=== PATIENT | female | born 1940 | race Caucasian/White ===

== ENCOUNTER 2017-07-10 16:28 | Emergency (ER) | payer MEDICARE ==
[~2017-07-10] VITALS: Ht 167.6 cm; Wt 48.1 kg
[~2017-07-10 16:28] MED LIST: ARMOUR THYROID60 MG PO; ASPIRIN 325MG; CALCIUM PO; CALCIUM500 M3; CELEBREX200 MG PO; CO Q-10100 MG PO; CRESTOR5 MG PO; EFFIENT; GINGER PO; HYDROCHLOROTH12.5 MG PO; MAGNESIUM PO; METOPROLOL PO; METOPROLOL SUCC25 MG PO; METOPROLOL SUCC50 MG PO; RAMIPRIL PO; RAMIPRIL5 MG PO; RANITIDINE HCL300 MG PO; VITAMIN D35000 UNI1 PO; Z ACIDOPHILUS PO; Z ARMOUR THYROID PO; Z CO Q PO; Z MELATONIN; Z.0.B12 5,000 MCG1 E SL; Z.0.CRESTOR5 MG PO; Z.0.MULTIVITAMINS1 E; Z.0.ZANTAC 7575 MG PO; [UNRECOGNIZED DRUG - OTHER]; [UNRECOGNIZED DRUG - OTHER] PO; [UNRECOGNIZED DRUG - OTHER] PO; [UNRECOGNIZED DRUG - OTHER] PO
--- NOTE | 2017-07-10 18:22 | Diagnostic Imaging Report ---
Exam: Head CT without contrast History: Rule out CVA, falls, right leg weakness. Comparison studies: None Technique: Axial images were obtained from the skull base to the vertex. Coronal and sagittal images reconstructed from the axial data. Intravenous contrast: None Findings: Scalp: No abnormalities. Bones: No fractures, blastic or lytic lesions. Brain sulci: Sulci at the vertex are mildly effaced. Moderately prominent sylvian fissures. Remaining sulci are mildly prominent. Ventricles: Moderate ventriculomegaly disproportionate to sulcal prominence is unchanged. Findings may reflect chronic communicating hydrocephalus or normal pressure hydrocephalus in the appropriate context. No acute hydrocephalus. Extra-axial spaces: No masses, no fluid collection. Parenchyma: Confluent hypodensities in the supratentorial white matter are nonspecific most compatible with chronic small vessel ischemic changes. Sellar/suprasellar region: No abnormalities. Craniocervical junction: Patent foramen magnum. No Chiari one malformation. Incidental findings: Atherosclerotic calcifications in the carotid siphons. IMPRESSION: 1. No mass, acute hemorrhage or acute cortical vascular insults. 2. No changes from the previous brain MRI of 03/23/2017 when allowing for differences in technique. Chronic findings: 1. Mild generalized volume loss. 2. Severe supratentorial microvascular ischemic changes. 3. Moderate ventriculomegaly. Consider normal pressure hydrocephalus in the appropriate setting. Signed by: Dr. Randolph Shea M.D. on 07/10/2017 6:18 PM
[2017-07-10 19:52] LABS: BILIRUBIN,URINE NEGATIVE (NEGATIVE); CLARITY,URINE CLEAR (CLEAR); COLOR,URINE YELLOW (YELLOW); KETONES,URINE 1+ (NEGATIVE); LEUKOCYTE ESTERASE ,URINE NEGATIVE (NEGATIVE); NITRITE,URINE NEGATIVE (NEGATIVE); PROTEIN,URINE DIPSTICK NEGATIVE (NEGATIVE); URINE UROBILINOGEN 0.2 mg/dL (0.2 - 1)
[2017-07-10 20:06] LABS: WBC,URINE (MAN) 0-5 /HPF (0-5)
== END 2017-07-10 21:00 | disposition left against medical advice (07) ==
LOC: ER 16:28
DX: R26.9 Unspecified abnormalities of gait and mobility (principal)
CPT/HCPCS: 70450; 81001; 87086

== ENCOUNTER → 2019-10-15 | Outpatient (CLI) | payer MEDICARE, OTHER ==
--- NOTE | 2019-10-15 12:44 | Diagnostic Imaging Report ---
CT BRAIN WO HISTORY: Trauma; frequent falls COMPARISON: Head CT 07/10/2017; report from brain MRI dated 03/23/2017 Technique: Noncontrast axial scans were obtained from skull base to the vertex. Coronal and sagittal reconstructions obtained from the axial data. One or more of the following dose reduction techniques were used: Automated exposure control, adjustment of the mA and/or kV according to patient size, and/or utilization of iterative reconstruction technique. DISCUSSION: Scalp/Skull: Unremarkable. Brain sulci: Mildly prominent. Ventricles: Stable moderate supratentorial ventriculomegaly is slightly out of proportion to sulcal prominence. Extra-axial spaces: No masses or fluid collections. Carotid siphon calcifications are present. Parenchyma: Severe bilateral deep white matter hypodensity is likely chronic microvascular ischemic change. There is an old left striatocapsular lacunar infarct, which was not present on prior head CT.. Otherwise, no masses, hemorrhage, or large vascular territory acute infarct. Dural sinuses: No abnormal densities. Sellar/Suprasellar region: Intact. Skull base: Intact. Incidental findings: None. IMPRESSION: 1. Unchanged moderate ventriculomegaly, which is slightly are proportional sulcal prominence. Correlate for communicating hydrocephalus (i.e. normal pressure hydrocephalus). 2. Otherwise, no acute intracranial abnormalities. 3. Old left striatocapsular lacunar infarct was not present on prior head CT. 4. No other significant change when compared to head CT dated 07/10/2017. 5. Severe supratentorial chronic microvascular ischemic change. 6. Generalized cerebral volume loss. Signed by: Dr. Mik De León M.D. on 10/15/2019 12:41 PM
== END ==
LOC: CT 12:10
PROVIDERS: ATTEND Family Medicine
DX: S00.83XA Contusion of other part of head, initial encounter (principal); R29.6 Repeated falls
CPT/HCPCS: 70450